=== PATIENT | male | born 1960 | race Asian ===

== ENCOUNTER 2020-07-18 17:04 | Emergency (ER) | payer MEDICAID ==
[~2020-07-18] VITALS: Ht 165.1 cm; Wt 57.6 kg
[2020-07-18] MEDS ORDERED: MECLIZINE HCL 25 MG TAB PO ONE (17:45)
[2020-07-18 17:46] LABS: Urine Bacteria NONE SEEN /hpf (None Seen); Urine Blood Negative /uL (Negative); Urine Specific Gravity 1.031 (1.001-1.035); Urine WBC <1 /hpf (0 - 3)
[2020-07-18 18:14] LABS: Basophils # (auto) 0.1 10 ^3/uL (0-0.2); Eosinophils # (auto) 0.2 10 ^3/uL (0-0.8); Mean Corpuscular Hemoglobin 20.9 pg (28.0-32.0); Monocytes # (auto) 0.6 10 ^3/uL (0-1.3)
[2020-07-18 18:15] LABS: Basophils % (auto) 0.7 % (0.0-2.0); Eosinophils % (auto) 2.6 % (0.0-7.0); Hematocrit 40.7 % (41.0-53.0); Hemoglobin 13.1 g/dL (13.5-17.5); Lymphocytes # (auto) 3.2 10 ^3/uL (0.4-5.4); Lymphocytes % (auto) 35.6 % (10.0-50.0); Mean Corpuscular Hgb Conc. 32.3 g/dL (32.0-36.0); Mean Corpuscular Volume 64.6 fL (80.0-100.0); Monocytes % (auto) 6.5 % (0.0-12.0); Neutrophils % (auto) 54.6 % (37.0-80.0); Nucleated Red Blood Cells % 0.3 %; Platelet Count (auto) 237 10^3/uL (140-450); Red Cell Distribution Width 16.6 % (11.8-14.3); White Blood Cell 9.1 10^3/uL (4.4-10.8)
[2020-07-18 18:30] LABS: Albumin 3.3 g/dL (3.4-5.0); Anion Gap 7 (5-15); Calcium 8.8 mg/dL (8.5-10.1); Carbon Dioxide 26 mmol/L (21-32); Chloride 99 mmol/L (98-107); Magnesium 1.9 mg/dL (1.6-2.6); Potassium 3.8 mmol/L (3.5-5.1); Sodium 132 mmol/L (136-145)
[2020-07-18] MEDS ORDERED: SODIUM CHLORIDE 0.9% 2,000 ML IV ONE (18:30)
[2020-07-18 18:33] LABS: Alanine Aminotransferase 22 U/L (16-61); Aspartate Aminotransferase 13 U/L (15-37); Bilirubin, Total 0.5 mg/dL (0.2-1.0); GFR African American 109 mL/min; GFR Non-African American 90 mL/min; Total Protein 7.4 g/dL (6.4-8.2)
[2020-07-18 18:38] LABS: Alkaline Phosphatase 79 U/L (45-117)
[2020-07-18 18:41] LABS: Glucose 516 mg/dL (74-106)
[2020-07-18] MEDS ORDERED: InsuLIN REG 1unit/0.01ml Soln (100units/ml) IV ONE (19:00)
[2020-07-18 19:44] LABS: BUN/Creatinine Ratio 14.3; Blood Urea Nitrogen 13 mg/dL (7-18)
[2020-07-18 20:00] VITALS: BP 112/73
== END 2020-07-18 22:00 | disposition home or self-care (01) ==
LOC: ER 17:04
DX: E11.65 Type 2 diabetes mellitus with hyperglycemia (principal); R42 Dizziness and giddiness; F17.210 Nicotine dependence, cigarettes, uncomplicated; E86.0 Dehydration
CPT/HCPCS: 36415; 80053; 81001; 82962; 83735; 83880; 84484; 85025; 96361; 96374; 99284; J1815; J7030; J8597

== ENCOUNTER 2024-12-13 15:52 | Inpatient (IN) | payer MEDICAID ==
[~2024-12-13] VITALS: Ht 157.5 cm; Wt 70.3 kg
--- NOTE | 2024-12-13 16:13 | ED.PDOC ---
History of present illness HPI Comments 64 year old male with PMHx DM presents to the ED with a chief complaint of hyperglycemia. Patient states he ran out of insulin and Metformin medication about 6 months ago. For the past few weeks he has been experiencing excessive thirst, dry mouth, excessive urination, generalized weakness, fatigue. Upon ED arrival, BG was 459. Denies chest pain, shortness of breath, fever, chills, dysuria, hematuria, headache, dizziness, blurred vision, numbness/tingling. No other symptoms or modifying factors present at this time. Chief Complaint: Hyperglycemia Time Seen by MD: 16:10 Primary Care Provider: NONE History of present illness: Nurses Notes, Medications, Allergies Allergies: Coded Allergies: NO KNOWN ALLERGIES (Unverified , 07/18/20) Information Source: Patient Mode of Arrival: Ambulatory Timing: Months Duration: Since onset Prehospital treatment: None History of: Diabetes, Insulin use Past Medical History PAST MEDICAL HISTORY: DM Surgical History: Denies all surgeries Family History Family History: Reviewed,noncontributory to illness Social History Smoker: Cigarettes, Less Than 1 Pack/Day Alcohol: Denies ETOH Use Drugs: Denies Drug Use Lives In: Home Constitutional: reports: fatigue, weakness; denies: chills, diaphoresis, fever, malaise, sweats, others EENTM: denies: blurred vision, double vision, ear bleeding, ear discharge, ear drainage, ear pain, ear ringing, eye pain, eye redness, hearing loss, mouth pain, mouth swelling, nasal discharge, nose bleeding, nose congestion, nose pain, photophobia, tearing, throat pain, throat swelling, voice changes, others Respiratory: denies: cough, hemoptysis, orthopnea, SOB at rest, shortness of breath, SOB with excertion, stridor, wheezing, others Cardiovascular: denies: chest pain, dizzy spells, diaphoresis, Dyspnea on e xertion, edema, irregular heart beat, left arm pain, lightheadedness, palpitations, PND, syncope, others Gastrointestinal: denies: abdomen distended, abdominal pain, blood streaked bowels, constipated, diarrhea, dysphagia, difficulty swallowing, hematemesis, melena, nausea, poor appetite, poor fluid intake, rectal bleeding, rectal pain, vomiting, others Genitourinary: denies: burning, dysuria, flank pain, frequency, hematuria, incontinence, penile discharge, penile sore, pain, testicle pain, testicle swelling, urgency, others Neurological: reports: weakness; denies: dizziness, fainting, headache, left sided numbness, left sided weakness, numbness, paresthesia, pre-existing deficit, right sided numbness, right sided weakness, seizure, speech problems, tingling, tremors, others Musculoskeletal: denies: back pain, gout, joint pain, joint swelling, muscle pain, muscle stiffness, neck pain, others Integumetry: denies: bruises, change in color, change in hair/nails, dryness, laceration, lesions, lumps, rash, wounds, others Allergic/Immunocompromised: denies: Difficulty Healing, Frequent Infections, Hives, Itching, others Hematologic/Lymphatic: denies: anemia, blood clots, easy bleeding, easy bruising, swollen glands, others Endocrine: reports: excessive thirst, excessive urination, others (dry mouth); denies: excessive hunger, excessive sweating, flushing, intolerance to cold, intolerance to heat, unexplained weight gain, unexplained weight loss Psychiatric: denies: anxiety, bipolar disorder, depression, hopeless, panic disorder, schizophrenia, sleepless, suicidal, others All Other Systems: Reviewed and Negative Physical Exam General Appearance: No Apparent Distress, Normal HEENT: Normal ENT Inspection, Pharynx Normal, TMs Normal Neck: Full Range of Motion, Non-Tender, Normal, Normal Inspection Respiratory: Chest Non-Tender, Lungs Clear, No Accessory Muscle Use, No Respiratory Distress, Normal Breath Sounds Cardiovascular: No Edema, No JVD, No Murmur, No Gallop, Normal Peripheral Pulses, Regular Rate/Rhythm Breast Exam: Deferred Gastrointestinal: No Organomegaly, Non Tender, No Pulsatile Mass, Normal Bowel Sounds, Soft Genitalia: Deferred Pelvic: Deferred Rectal: Deferred Extremities: No calf tenderness, Normal capillary refill, Normal inspection, Normal range of motion, Non-tender, No pedal edema Musculoskeletal : Apperance: Normal Neurologic: Alert, gasoline catalyst operator II-XII nml as Tested, No Motor Deficits, Normal Affect, Normal Mood, No Sensory Deficits Cerebellar Function: Normal Reflexes: Normal Skin: Dry, Normal Color, Warm Lymphatic: No Adenopathy Was a procedure done? Was a procedure done?: No Differential Diagnosis (DM) Differential Diagnosis: DKA, Electrolyte Abnormality, Hyperglycemia, Hyperosmolar State X-Ray, Labs, Meds, VS Vital Signs Date Time Temp Pulse Resp B/P (MAP) Pulse Ox O2 Delivery O2 Flow Rate FiO2 12/13/24 17:36 97.2 102 18 103/65 (78) 95 97.2 12/13/24 15:54 97.0 100 19 120/80 95 97.0 Lab Test 12/13/24 16:48 12/13/24 16:01 Range/Units White Blood Count 10.5 4.4-10.8 10^3/uL Red Blood Count 6.91 H 4.5-5.90 10^6/uL Hemoglobin 14.2 13.5-17.5 g/dL Hematocrit 44.4 41.0-53.0 % Mean Corpuscular Volume 64.2 L 80.0-100.0 fL Mean Corpuscular Hemoglobin 20.6 L 28.0-32.0 pg Mean Corpuscular Hemoglobin Concent 32.1 32.0-36.0 g/dL Red Cell Distribution Width 16.8 H 11.8-14.3 % Platelet Count 213 140-450 10^3/uL Mean Platelet Volume 8.5 6.9-10.8 fL Neutrophils (%) (Auto) 60.8 37.0-80.0 % Lymphocytes (%) (Auto) 30.6 10.0-50.0 % Monocytes (%) (Auto) 5.1 0.0-12.0 % Eosinophils (%) (Auto) 2.7 0.0-7.0 % Basophils (%) (Auto) 0.8 0.0-2.0 % Neutrophils # (Auto) 6.4 1.6-8.6 10 ^3/uL Lymphocytes # (Auto) 3.2 0.4-5.4 10 ^3/uL Monocytes # (Auto) 0.5 0-1.3 10 ^3/uL Eosinophils # (Auto) 0.3 0-0.8 10 ^3/uL Basophils # (Auto) 0.1 0-0.2 10 ^3/uL Nucleated Red Blood Cells 0.1 % Sodium Level 140 136-145 mmol/L Potassium Level 4.3 3.5-5.1 mmol/L Chloride Level 104 98-107 mmol/L Carbon Dioxide Level 27 20-31 mmol/L Anion Gap 9 5-15 Blood Urea Nitrogen 14 9-23 mg/dL Creatinine 1.25 0.700-1.30 mg/dL Glomerular Filtration Rate Calc 64 >90 mL/min BUN/Creatinine Ratio 11.2 10.0-20.0 Serum Glucose 461 *H 74-106 mg/dL Lactic Acid Level 1.4 0.4-2.0 mmol/L Calcium Level 9.2 8.7-10.4 mg/dL Total Bilirubin 0.4 0.2-1.0 mg/dL Aspartate Amino Transferase (AST) 19 13-40 U/L Alanine Aminotransferase (ALT) 25 7-40 U/L Alkaline Phosphatase 88 46-116 U/L Total Protein 7.4 5.7-8.2 g/dL Albumin 4.3 3.2-4.8 g/dL POC Glucose 459 *H 70-106 mg/dl [place] [id number] Ph: [phone] DIAGNOSTIC IMAGING Diagnostic Imaging Report : [id number] Signed PATIENT: HERB HERRERA ACCT: [id number] UNIT: [id number] : 1960 LOC: ER ROOM / BED: / AGE / SEX: 64 / M ADM STATUS: REG ER SERVICE 17 ORDERING PHYSICIAN: ADAN GARCIA PROCEDURE(s): CXR1 - CHEST XRAY 1 VIEW REASON: sob ORDER NUMBER(s): [id number], ACCESSION NUMBER(s): [id number] EXAM: XY CHEST XRAY 1 VIEW HISTORY: sob COMPARISON: CHEST PORTABLE on DOS: 07/03/20 TECHNIQUE: Portable upright AP view of the chest was performed. FINDINGS: No pneumothorax, consolidative infiltrates, or pulmonary edema. There is mild central peribronchial thickening. The heart is not enlarged. IMPRESSION: Mild reactive airways disease. The lungs are otherwise clear. ATED BY: JULIANA SOLORZANO MD DICTATED DATE/TIME: 12/13/241646 SIGNED BY: JULIANA SOLORZANO MD SIGNED DATE/TIME: 12/13/241646 CC: X-Ray, Labs, Meds, VS Comment Patient will be admitted for hyperglycemia due to noncompliance with medications Patient be given 10 units insulin and normal saline bolus Recommend high school social studies tutor consult Recommend endocrinology consult and A1c for better evaluation of diabetes and treatment plan No signs of DKA Patient hemodynamically stable Time of 1ST Reevaluation: 16:40 Reevaluation 1ST: Unchanged Patient Education/Counseling: Diagnosis, Treatment, Prognosis Family Education/Counseling: No Family Present SEPSIS Sepsis Screen Date sepsis recognized/suspect: Dec 13, 2024 Time Sepsis recognized/suspect: 1553 Recent Procedure: No On Antibiotic Therapy: No Respiratory Rate >20: No Heart Rate >90: Yes Temp<36 C (96.8 F) or >38.3 C: No SBP <90 or MAP <65 mmHG: No New Acute Mental Status Change: No Is the patient on CPAP, BIPAP,: No Physician Orders Urinalysis (12/13/24 16:18) Chest Xray 1 View (12/13/24 16:18) Sodium Chloride 0.9% (12/13/24 18:00) Insulin R (Human) (Insulin R) (12/13/24 18:00) Vital Signs Date Time Temp Pulse Resp B/P (MAP) Pulse Ox O2 Delivery O2 Flow Rate FiO2 12/13/24 17:36 97.2 102 18 103/65 (78) 95 97.2 12/13/24 15:54 97.0 100 19 120/80 95 97.0 Laboratory Tests Test 12/13/24 16:48 Lactic Acid Level 1.4 mmol/L (0.4-2.0) White Blood Count 10.5 10^3/uL (4.4-10.8) Departure 1 Departure Time of Disposition: 17:56 Impression: Primary Impression: Hyperglycemia Disposition: 09 ADMITTED INPATIENT Condition: Stable Discharged With: Self Critical Care Note Critical Care Time?: No Stability Stability form required: No Heart Score Heart Score: Heart Score Response (Comments) Value History N/A 0 EKG N/A 0 Age N/A 0 Risk Factors N/A 0 Troponin N/A 0 Total 0 I personally scribed for ADAN GARCIA ([email or web address]) on 12/13/24 at 16:13. Electronically submitted by Vivien Cheatham ([email or web address]). I personally scribed for ADAN GARCIA COMMUTATOR ASSEMBLER ([email or web address]) on 12/13/24 at 17:47. Electronically submitted by Vivien Cheatham ([email or web address]). ADAN GARCIA Dec 13, 2024 16:13
--- NOTE | 2024-12-13 16:49 | DVH ---
EXAM: XY CHEST XRAY 1 VIEW HISTORY: sob COMPARISON: CHEST PORTABLE on DOS: 07/03/20 TECHNIQUE: Portable upright AP view of the chest was performed. FINDINGS: No pneumothorax, consolidative infiltrates, or pulmonary edema. There is mild central peribronchial t hickening. The heart is not enlarged. IMPRESSION: Mild reactive airways disease. The lungs are otherwise clear.
[2024-12-13 17:17] LABS: Mean Corpuscular Hemoglobin 20.6 pg (28.0-32.0)
[2024-12-13 17:19] LABS: Hematocrit 44.4 % (41.0-53.0); Hemoglobin 14.2 g/dL (13.5-17.5); Mean Corpuscular Volume 64.2 fL (80.0-100.0); Nucleated Red Blood Cells % 0.1 %
[2024-12-13 17:33] LABS: Alanine Aminotransferase 25 U/L (7-40); Alkaline Phosphatase 88 U/L (46-116); Anion Gap 9 (5-15); BUN/Creatinine Ratio 11.2 (10.0-20.0); Blood Urea Nitrogen 14 mg/dL (9-23); Calcium 9.2 mg/dL (8.7-10.4); Carbon Dioxide 27 mmol/L (20-31); Chloride 104 mmol/L (98-107); Potassium 4.3 mmol/L (3.5-5.1); Sodium 140 mmol/L (136-145); Total Protein 7.4 g/dL (5.7-8.2)
[2024-12-13 17:34] LABS: Albumin 4.3 g/dL (3.2-4.8); Bilirubin, Total 0.4 mg/dL (0.2-1.0)
[2024-12-13 17:36] VITALS: TEMP 97.2
[2024-12-13 17:39] LABS: Glucose 461 mg/dL (74-106)
[2024-12-13] MEDS: SODIUM CHLORIDE 0.9% 1,650 ML IV ONE (18:00)
[2024-12-13] MEDS: ALBUTEROL SULF 2.5 MG/0.5ML(0.5%) NEB SOLN NEB ONE (18:20)
[2024-12-13] MEDS: IPRATROPIUM BROM 0.5 MG/2.5ML INH SOL NEB ONE (18:20)
[2024-12-13] MEDS: InsuLIN REG 1unit/0.01ml Soln (100units/ml) IV ONE (19:32)
[2024-12-13] MEDS ORDERED: ACETAMINOPHEN 325 MG TAB PO PRN (20:15)
[2024-12-13] MEDS ORDERED: ONDANSETRON HCL 4 MG/2 ML VIAL IV PRN (20:15)
[2024-12-13] MEDS ORDERED: DEXTROSE (50%) 50ML SYRG IV PRN (20:15)
--- NOTE | 2024-12-13 21:53 | DVHHP2 ---
History of Present Illness Reason for Visit: Hyperglycemia History of Present Illness 64-year-old male with a history of diabetes mellitus presents for evaluation of hyperglycemia. Patient reports running out of his insulin seven months ago. He states for the past two weeks having excessive thirst, excessive urination and dry mouth. On arrival to the emergency department his blood sugars greater than 500. Past Medical History Diabetes mellitus Past Surgical History Denies Family History Noncontributory Smoke: <1 pack per day ALCOHOL: none Drugs: None Lives: with Family Review of Systems Review of Systems Review of systems are currently negative otherwise addressed in HPI. Allergies: Coded Allergies: NO KNOWN ALLERGIES (Unverified , 07/18/20) Medications Current Medications Medications Dose Ordered Sig/Abena Route Start Time Stop Time Status Last Admin Dose Admin Diagnostic Test (Pha) 1 strip IQ4HR 12/14/24 00:00 Insulin Human Regular IQ4HR SC 12/14/24 00:00 Dextrose 50 ml UD PRN IV 12/13/24 20:15 Ondansetron HCl 4 mg Q4HP PRN IV 12/13/24 20:15 Acetaminophen 650 mg Q6HP PRN PO 12/13/24 20:15 Exam Vital Signs Vital Signs Date Time Temp Pulse Resp B/P (MAP) Pulse Ox O2 Delivery O2 Flow Rate FiO2 12/13/24 18:24 16 94 Room Air* 0 21 12/13/24 17:36 97.2 102 103/65 (78) 97.2 Exam Gen: 64-year-old male in mild distress Skin: Warm, dry, normal color and texture, no rash. HEENT: Normocephalic atraumatic, mucous membranes moist and pink. Neck: Cervical and supraclavicular nodes normal without enlargement, trachea is midline, thyroid gland is normal without masses. Pulmonary: Clear to auscultation and percussion bilaterally. Cardiac: Regular rate and rhythm. No murmur Abdomen: Soft, nontender, nondistended, bowel sounds present all 4 quadrants, no guarding, no rigidity, no organomegaly. Extremities: No cyanosis, clubbing, no edema Neuro: Cranial nerves II through XII grossly intact, normal affect and speech, no focal motor deficits. Labs/Xrays ORDERING PHYSICIAN: ADAN GARCIA PROCEDURE(s): CXR1 - CHEST XRAY 1 VIEW REASON: sob ORDER NUMBER(s): [id number], ACCESSION NUMBER(s): [id number] EXAM: XY CHEST XRAY 1 VIEW HISTORY: sob COMPARISON: CHEST PORTABLE on DOS: 07/03/20 TECHNIQUE: Portable upright AP view of the chest was performed. FINDINGS: No pneumothorax, consolidative infiltrates, or pulmonary edema. There is mild central peribronchial thickening. The heart is not enlarged. IMPRESSION: Mild reactive airways disease. The lungs are otherwise clear. Labs Test 12/13/24 16:48 12/13/24 16:01 Range/Units White Blood Count 10.5 4.4-10.8 10^3/uL Red Blood Count 6.91 H 4.5-5.90 10^6/uL Hemoglobin 14.2 13.5-17.5 g/dL Hematocrit 44.4 41.0-53.0 % Mean Corpuscular Volume 64.2 L 80.0-100.0 fL Mean Corpuscular Hemoglobin 20.6 L 28.0-32.0 pg Mean Corpuscular Hemoglobin Concent 32.1 32.0-36.0 g/dL Red Cell Distribution Width 16.8 H 11.8-14.3 % Platelet Count 213 140-450 10^3/uL Mean Platelet Volume 8.5 6.9-10.8 fL Neutrophils (%) (Auto) 60.8 37.0-80.0 % Lymphocytes (%) (Auto) 30.6 10.0-50.0 % Monocytes (%) (Auto) 5.1 0.0-12.0 % Eosinophils (%) (Auto) 2.7 0.0-7.0 % Basophils (%) (Auto) 0.8 0.0-2.0 % Neutrophils # (Auto) 6.4 1.6-8.6 10 ^3/uL Lymphocytes # (Auto) 3.2 0.4-5.4 10 ^3/uL Monocytes # (Auto) 0.5 0-1.3 10 ^3/uL Eosinophils # (Auto) 0.3 0-0.8 10 ^3/uL Basophils # (Auto) 0.1 0-0.2 10 ^3/uL Nucleated Red Blood Cells 0.1 % Sodium Level 140 136-145 mmol/L Potassium Level 4.3 3.5-5.1 mmol/L Chloride Level 104 98-107 mmol/L Carbon Dioxide Level 27 20-31 mmol/L Anion Gap 9 5-15 Blood Urea Nitrogen 14 9-23 mg/dL Creatinine 1.25 0.700-1.30 mg/dL Glomerular Filtration Rate Calc 64 >90 mL/min BUN/Creatinine Ratio 11.2 10.0-20.0 Serum Glucose 461 *H 74-106 mg/dL Hemoglobin A1c 13.6 H <5.7 % A1C Lactic Acid Level 1.4 0.4-2.0 mmol/L Calcium Level 9.2 8.7-10.4 mg/dL Total Bilirubin 0.4 0.2-1.0 mg/dL Aspartate Amino Transferase (AST) 19 13-40 U/L Alanine Aminotransferase (ALT) 25 7-40 U/L Alkaline Phosphatase 88 46-116 U/L Total Protein 7.4 5.7-8.2 g/dL Albumin 4.3 3.2-4.8 g/dL POC Glucose 459 *H 70-106 mg/dl SEPSIS Sepsis Screen Date sepsis recognized/suspect: Dec 13, 2024 Time Sepsis recognized/suspect: 1735 Recent Procedure: No On Antibiotic Therapy: No Respiratory Rate >20: No Heart Rate >90: Yes Temp<36 C (96.8 F) or >38.3 C: No SBP <90 or MAP <65 mmHG: No New Acute Mental Status Change: No Is the patient on CPAP, BIPAP,: No Physician Orders Urinalysis (12/13/24 16:18) Chest Xray 1 View (12/13/24 16:18) Admit (12/13/24 19:57) Basic Metabolic Panel (12/14/24 04:00) Consistent Carb(Ccho)Diabetes (12/14/24 Breakfast) Glucose Blood (Accu-Chek Comfort Curve T (12/14/24 00:00) Insulin R (Human) (Insulin R) (12/14/24 00:00) Dextrose 50% Syringe (12/13/24 20:15) Ondansetron Hcl (Zofran) (12/13/24 20:15) Condition: Stable (12/13/24 20:11) Acetaminophen Tablet (Tylenol Tablet) (12/13/24 20:15) Bedrest With Bathroom Privileg (12/13/24 20:11) Vital Signs Date Time Temp Pulse Resp B/P (MAP) Pulse Ox O2 Delivery O2 Flow Rate FiO2 12/13/24 18:24 16 94 Room Air* 0 21 12/13/24 17:36 97.2 102 18 103/65 (78) 95 97.2 12/13/24 17:36 102 20 95 Room Air 12/13/24 15:54 97.0 100 19 120/80 95 97.0 Laboratory Tests Test 12/13/24 16:48 Lactic Acid Level 1.4 mmol/L (0.4-2.0) White Blood Count 10.5 10^3/uL (4.4-10.8) Medications Medications Dose Ordered Sig/Abena Route Start Time Stop Time Status Last Admin Dose Admin Albuterol 2.5 mg ONCE ONCE NEB 12/13/24 18:00 12/13/24 18:01 DC 12/13/24 18:20 2.5 MG Insulin Human Regular 10 units ONCE ONCE IV 12/13/24 18:00 12/13/24 18:08 DC 12/13/24 19:32 10 UNITS Ipratropium [place] 0.5 mg ONCE ONCE NEB 12/13/24 18:00 12/13/24 18:01 DC 12/13/24 18:20 0.5 MG Sodium Chloride 1,650 ml @ 1,650 mls/hr ONCE ONCE IV 12/13/24 18:00 12/13/24 18:59 DC 12/13/24 18:00 1,650 MLS/HR Assessment/Plan Assessment/Plan Assessment Uncontrolled diabetes mellitus Active smoker Plan Admit the patient to [facility] to the hospitalist Q.4 hour Accu-Cheks with mild coverage Consistent carb controlled diet Continue treatment per orders Plan discussed with: Patient My Orders Orders - HERNANDEZ MASTERSON AGACNP Procedure Category Date Status Time Admit ADMIT 12/13/24 Transmitted 19:57 Basic Metabolic Panel LAB 12/14/24 Verified 04:00 Consistent DIET 12/14/24 Transmitted Carb(Ccho)Diabetes Breakfast Glucose Blood PHA 12/14/24 In Process (Accu-Chek Comfort 00:00 Insulin R (Human) PHA 12/14/24 In Process (Insulin R) 00:00 Dextrose 50% Syringe PHA 12/13/24 In Process 20:15 Ondansetron Hcl PHA 12/13/24 In Process (Zofran) 20:15 Condition: Stable ROSA 12/13/24 In Process 20:11 Acetaminophen Tablet PHA 12/13/24 In Process (Tylenol Tablet) 20:15 Bedrest With Bathroom ROSA 12/13/24 In Process Privileg 20:11 Date of Service: Dec 13, 2024 Billing Provider: HERNANDEZ MASTERSON Common Visit Codes: [id number] INP/OBS CARE (MOD) HERNANDEZ MASTERSON Dec 13, 2024 21:53
[2024-12-13 22:51] VITALS: BP 105/71; PULSE 85; RESP 17; O2SAT 94
[2024-12-13] MEDS: InsuLIN REG 1unit/0.01ml Soln (100units/ml) SC SCH (23:49)
[2024-12-13] MEDS: ACCU-CHEK COMFORT CURVE STRIP VI SCH (23:55)
== END 2024-12-14 02:14 | disposition left against medical advice (07) | DRG 420 ==
LOC: ER 15:52 → OVERFLOW 19:57 → WEST WING 22:30
PROVIDERS: ADMIT Nurse Practitioner; ATTEND Nurse Practitioner
DX: E11.65 Type 2 diabetes mellitus with hyperglycemia (principal); F17.210 Nicotine dependence, cigarettes, uncomplicated; Z91.148 Patient's other noncompliance with medication regimen for other reason; Z79.4 Long term (current) use of insulin
CPT/HCPCS: 36415; 71045; 80053; 82962; 83036; 83605; 85025; 94640; 96360; G0378; J1815